=== PATIENT | female | born 1990 | race Two or more races ===

== ENCOUNTER 2022-01-09 10:44 | Emergency (ER) | payer OTHER ==
[~2022-01-09] VITALS: Ht 157.5 cm; Wt 76.5 kg
[2022-01-09 11:40] VITALS: BP 126/92
[2022-01-09] MEDS ORDERED: ACETAMINOPHEN 500 MG TAB PO ONE (12:15)
[2022-01-09] MEDS ORDERED: METH750T22 PO (12:43)
[2022-01-09] MEDS ORDERED: IBUP800T27 PO (12:43)
== END 2022-01-09 12:52 | disposition home or self-care (01) ==
LOC: ER 10:44
DX: S43.401A Unspecified sprain of right shoulder joint, initial encounter (principal); S76.011A Strain of muscle, fascia and tendon of right hip, initial encounter; V43.62XA Car passenger injured in collision with other type car in traffic accident, initial encounter; Y93.89 Activity, other specified; Y92.410 Unspecified street and highway as the place of occurrence of the external cause; Y99.8 Other external cause status
CPT/HCPCS: 73030; 73502